=== PATIENT | female | born 1950 | race Caucasian/White ===

== ENCOUNTER 2024-08-27 12:57 | Outpatient (RCR) | payer MEDICARE, OTHER, SELFPAY | END 2024-08-27 23:59 | disposition home or self-care (01) | LOC: RPT 12:57 | PROVIDERS: ATTENDING PHYSICIAN Obstetrics & Gynecology; FAMILY PHYSICIAN Family Medicine | DX: R35.0 Frequency of micturition (principal); N39.41 Urge incontinence; N39.3 Stress incontinence (female) (male); N94.19 Other specified dyspareunia; N81.10 Cystocele, unspecified; Z73.6 Limitation of activities due to disability | CPT/HCPCS: 97163; 97530 ==

== ENCOUNTER 2024-09-29 13:59 | Outpatient (RCR) | payer MEDICARE, OTHER, SELFPAY | END 2024-09-29 23:59 | disposition home or self-care (01) | LOC: RPT 13:59 | PROVIDERS: ATTENDING PHYSICIAN Obstetrics & Gynecology; FAMILY PHYSICIAN Family Medicine | DX: R35.0 Frequency of micturition (principal); N39.41 Urge incontinence; N39.3 Stress incontinence (female) (male); N94.19 Other specified dyspareunia; N81.10 Cystocele, unspecified; Z73.6 Limitation of activities due to disability | CPT/HCPCS: 97014; 97140; 97530 ==

== ENCOUNTER → 2024-12-04 08:40 | Outpatient (REF) | payer MEDICARE, OTHER, SELFPAY | LOC: RAD 08:40 | PROVIDERS: ATTENDING PHYSICIAN Nurse Practitioner; FAMILY PHYSICIAN Family Medicine | DX: N39.0 Urinary tract infection, site not specified (principal) | CPT/HCPCS: 76770; 76856 ==

== ENCOUNTER 2025-01-28 12:47 | Outpatient (RCR) | payer MEDICARE, OTHER, SELFPAY | END 2025-01-28 23:59 | disposition home or self-care (01) | LOC: RPT 12:47 | PROVIDERS: ATTENDING PHYSICIAN Urology; FAMILY PHYSICIAN Family Medicine | DX: R35.0 Frequency of micturition (principal); M62.89 Other specified disorders of muscle; R10.2 Pelvic and perineal pain; K59.00 Constipation, unspecified; Z73.6 Limitation of activities due to disability | CPT/HCPCS: 97140; 97163; 97530 ==

== ENCOUNTER 2025-02-17 14:01 | Outpatient (RCR) | payer MEDICARE, OTHER, SELFPAY | END 2025-02-17 23:59 | disposition home or self-care (01) | LOC: RPT 14:01 | PROVIDERS: ATTENDING PHYSICIAN Urology; FAMILY PHYSICIAN Family Medicine | DX: R35.0 Frequency of micturition (principal); M62.89 Other specified disorders of muscle; R10.2 Pelvic and perineal pain; K59.00 Constipation, unspecified; Z73.6 Limitation of activities due to disability; N81.10 Cystocele, unspecified | CPT/HCPCS: 97140; 97530 ==

== ENCOUNTER 2025-04-01 14:17 | Outpatient (RCR) | payer MEDICARE, OTHER, SELFPAY | END 2025-04-01 23:59 | disposition home or self-care (01) | LOC: RPT 14:17 | PROVIDERS: ATTENDING PHYSICIAN Urology; FAMILY PHYSICIAN Family Medicine | DX: R35.0 Frequency of micturition (principal); M62.89 Other specified disorders of muscle; R10.2 Pelvic and perineal pain; K59.00 Constipation, unspecified; Z73.6 Limitation of activities due to disability; N81.10 Cystocele, unspecified | CPT/HCPCS: 97112; 97140; 97530 ==

== ENCOUNTER 2025-04-06 17:38 | Emergency (ER) | payer MEDICARE, OTHER, SELFPAY ==
[2025-04-06 17:41] VITALS: BP 176/90
[2025-04-06 18:05] LABS: Hematocrit 46.2 % (37.0-47.0); Hemoglobin 16.1 g/dL (12.0-16.0); Mean Corp Hgb Conc. 34.8 g/dL (33.0-37.0); Mean Corpuscular Volume 90.9 fL (81.0-99.0); Nucleated Red Blood Cells % 0 %; Platelet Count 272 10^3/uL (130-400); Red Cell Dist. Width 11.9 % (11.5-14.5); Urine Character Clear (Clear)
[2025-04-06 18:15] LABS: Urine Red Blood Cell 0-2 /HPF (0-2); Urine Squamous Cell 0-2 /LPF (Few); Urine White Cell 26-30 /HPF (0-5)
[2025-04-06 18:22] LABS: ALT (SGPT) 17 U/L (0-35); AST (SGOT) 19 U/L (14-36); Albumin 5.1 g/dl (3.5-5.0); Alkaline Phosphatase 46 U/L (38-126); Blood Urea Nitrogen 18 mg/dl (7-17); Calcium 9.6 mg/dl (8.4-10.2); Carbon Dioxide 29 mmol/L (22-30); Chloride 94 mmol/L (98-107); Glucose 100 mg/dl (70-99); Potassium 4.2 mmol/L (3.5-5.1); Sodium 130 mmol/L (135-145); Total Protein 7.7 g/dl (6.3-8.2); eGFR > 60.00
--- NOTE | 2025-04-06 19:55 | ED.GENMED ---
History of Present Illness
General
Chief Complaint: Urinary Symptoms
Source: patient, records and spouse
Time Seen by Provider: 04/06/25 19:04
History of Present Illness
History of Present Illness:
74-year-old female with a past medical history of fibromyalgia, chronic pain syndrome, pelvic organ prolapse with chronic pessary, atrophic vaginitis/GSM on chronic vaginal suppositories, chronic urinary retention requiring occasional straight
catheterization who presents to the emergency room for evaluation of urinary symptoms and abnormal urinalysis. Patient follows with urology at [place] (Dr. Alla Bower). She presents today for urinary symptoms and abnormal urinalysis as an
outpatient�she says that for the past few weeks she has began to develop bladder pressure, dysuria and increased frequency. She had abnormal urinalysis and was treated with fosfomycin which she finished 03/27 without improvement. She had repeat
urinalysis 04/01 which was positive for infection (I spoke with the urology group at [place] and patient apparently grew 100 K CFU E. coli resistant to ampicillin and Bactrim, intermediate sensitivity to Augmentin, otherwise sensitive). She says
that she was referred to the ER for assessment with concern that she may need IV antibiotics. She has had recurrent UTIs since September of this year that have apparently all grown E. coli and has been on multiple different antibiotics unfortunately
she has limited treatment options given that she is allergic to many antibiotics�she has listed allergies to penicillins, cephalosporins, fluoroquinolones, nitrofurantoin. She has not had any fevers or chills, flank pain or any other acute issues.
Review of Systems
Review of Systems
All Other Systems: ROS reviewed and negative except as documented in HPI and ROS
Constitutional: Denies fever
Respiratory: Denies trouble breathing
Cardiac: Denies chest pain
ABD/GI: Reports abdominal pain; Denies nausea or vomiting
: Reports dysuria and frequency; Denies flank pain
Musculoskeletal: Denies neck pain or back pain
Neurological: Denies headache
Phy Exam
Physical Exam
Physical Exam:
General: Awake, alert, oriented x3; no acute distress
Head: Normocephalic, atraumatic
Eyes: Conjunctiva normal
Throat: Airway intact, handling secretions
Neck: Trachea midline
Lungs: Breathing comfortably no distress
Heart: Regular rate
Abd: Soft, non distended, nontender
Back: No CVA tenderness
Skin: no rash
Extremities: Warm and well-perfused
Scores
Heart Failure Risk
Heart Failure Risk Score: Not Applicable
Heart Score for Chest Pain Patients
STEMI patient?: Not applicable
Withdrawal Assessment of Alcohol
Withdrawal Assessment Completed?: Not applicable
Course
Orders/Labs/Results
Orders:
Orders
04/06/25 17:57
Complete Blood Count/With Diff Urgent
Comprehensive Metabolic Panel Urgent
Urinalysis Reflex To Culture Urgent
Date Specimen was Collected: 04/06/25
Time Specimen was Collected: 17:48
Urine Microscopic Reflex Cult Urgent
Urine Culture Urgent
NELLY Source: U
Specimen Description:
Date Specimen was Collected: 04/06/25
Time Specimen was Collected: 17:48
Abnormal Lab Results
04/06/25
17:57
Hgb 16.1 H g/dL
(12.0-16.0)
MCH 31.7 H pg
(27.0-31.0)
Sodium 130 L mmol/L
(135-145)
Chloride 94 L mmol/L
(98-107)
BUN 18 H mg/dl
(7-17)
Creatinine 0.5 L mg/dL
(0.6-1.0)
Glucose 100 H mg/dl
(70-99)
Albumin 5.1 H g/dl
(3.5-5.0)
Leukocyte Esterase Rfl 1+ A
(Negative)
Urine WBC (Reflex) 26-30 A /HPF
(0-5)
Urine Bacteria (Reflex) Many A
(Negative)
04/06/25 17:57
04/06/25 17:57
Vital Signs
Initial and Last Documented VS:
Initial Vital Signs
Temp Pulse Resp BP Pulse Ox
37.1 C 81 17 176/90 99
04/06/25 17:41 04/06/25 17:41 04/06/25 17:41 04/06/25 17:41 04/06/25 17:41
Last Documented Vital Signs
Temp Pulse Resp BP Pulse Ox
37.1 C 81 17 176/90 99
04/06/25 17:41 04/06/25 17:41 04/06/25 17:41 04/06/25 17:41 04/06/25 19:55
MDM/Problems Addressed
Differential Diagnosis Includes:
UTI, interstitial cystitis, atrophic vaginitis
MDM/Problems Addressed:
74-year-old female presents to the ER with urinary symptoms and abnormal urinalysis as outpatient. Multiple allergies and recently failed Bactrim and fosfomycin. Vitals and exam as above. She had labs sent off today including a CBC which showed
no clinically significant abnormalities, urinalysis which showed only mild hyponatremia. Her urinalysis today is abnormal with positive bacteria and pyuria, no nitrites. Urine culture sent off. I spoke with urology at [place] to discuss�recent
culture 04/01 grew E. coli resistant to Bactrim and ampicillin with intermediate sensitivity to Augmentin otherwise sensitive. Discussed case with infectious disease regarding treatment options for this patient. Will plan to proceed with one-time
dose of IV gentamicin here. Can discharge on oral doxycycline. Can add Pyridium as well. No clear indication for hospitalization�patient feels comfortable with this plan. She is already well-established with urology and urogynecologist.
Chronic conditions affecting care:
GSM, interstitial cystitis
Acute Exacerbation and/or Progression of Chronic Illness:
Acutely hypertensive without signs or symptoms of hypertensive crisis�no negation for emergent antihypertensives
Acute Exacerbation and/or Progression of Chronic Illness: HTN
*Pulse Oximetry
SaO2: 99
Oxygen Mode of Delivery: Room air
Patient hypoxic: no (99%)
*Critical Care Note
Total Time (30-74mins, 75-104mins- exclusive of procedures): Not Applicable
Data Reviewed
Review of Other/Old Records Reveals: Records
Source: patient, records (Reviewed outpatient notes) and spouse
Patient Management
Discussion with other providers: PCP (Discussed with primary urology team) and Utilities And Maintenance Supervisor (Discussed with infectious disease)
ED Attending Note
-
Portions of this chart may have been created with voice recognition software.� Occasional wrong word or��sound alike� substitutions may have occurred due to the inherent limitations of voice recognition software.
Discharge Plan
Departure
Patient Disposition: Home (Routine Discharge)
Date of Disposition: 04/06/25
Time of Disposition: 20:25
Patient with high blood pressure during this ER visit?: Yes
Discharge Problem:
UTI (urinary tract infection)
Instructions: Urinary Tract Infection, Adult (DC)
Prescriptions:
New
doxycycline hyclate 100 mg tablet
100 mg PO BID Qty: 14 0RF
phenazopyridine [Pyridium] 100 mg tablet
100 mg PO TID Qty: 6 0RF
No Action
acetaminophen [Tylenol Arthritis] 650 MG tablet extended release
650 mg PO QID
omeprazole 2 MG/ML capsule,delayed release(DR/EC)
20 mg PO BID
polyethylene glycol 3350 255 GM powder
17 gm PO DAILY
ranitidine HCl 15 MG/ML syrup
150 mg PO HS PRN (Reason: GI reflux)
calcium-vitamin D3-vitamin K 1 EACH tablet,chewable
1 ea PO BID
Vivelle-Dot
0.05 mg transdermal 2XW
Referrals:
Alla Bower MD [Non-Admitting Privileges, Urology] - Call in 1-3 days for appt
Activity Restrictions/Additional Instructions:
Thank you for visiting the Emergency Department at [facility].
1. Please schedule a follow up appointment as directed. Call first thing tomorrow morning to make an appointment.
2. If indicated, please take your medications as instructed and indicated on discharge paperwork.
3. If any of your symptoms do not improve, or persist, or become more severe within 6-12 hours, please return to the emergency department for further care.
4. Please return to the emergency department if you develop a headache, neck pain/stiffness, fever greater than 100.4F, chest pain, shortness of breath, persistent nausea, vomiting, slurred speech, difficulty walking, numbness/tingling, weakness,
signs of infection or any other symptoms that are worrisome to you.
Please call [phone] if you have any questions.
Interventions
Interventions:
*Risk Screen - Suicide Last Done: 04/06/25 17:47
*General Assessment Last Done: 04/06/25 17:47
*Neglect/Abuse Screening Last Done: 04/06/25 17:47
*ED COVID-19 Vaccine History Last Done: 04/06/25 17:47
ED-Female Genitourinary Assessment Last Done: 04/06/25 20:00
Discharge Date and Time
Print Language: MAORI
[2025-04-06 20:13] VITALS: BP 143/74
[2025-04-06] MEDS: GENTAMICIN 55.875 MG IV (21:35)
[2025-04-06 22:11] VITALS: BP 146/70
== END 2025-04-06 22:15 | disposition home or self-care (01) ==
LOC: EMR 17:38
PROVIDERS: Emergency Medicine; EMERGENCY PHYSICIAN Emergency Medicine; FAMILY PHYSICIAN Urology
DX: N39.0 Urinary tract infection, site not specified (principal); M79.7 Fibromyalgia; E87.1 Hypo-osmolality and hyponatremia; I10 Essential (primary) hypertension; Z88.0 Allergy status to penicillin
CPT/HCPCS: 99283; 96365; 80053; 81003; 81015; 85025; 87077; 87086

== ENCOUNTER 2025-04-09 12:32 | Emergency (ER) | payer MEDICARE, OTHER, SELFPAY ==
[2025-04-09 12:39] VITALS: BP 152/122
[2025-04-09 13:04] LABS: Hematocrit 42.5 % (37.0-47.0); Hemoglobin 14.9 g/dL (12.0-16.0); Mean Corp Hgb Conc. 35.1 g/dL (33.0-37.0); Mean Corpuscular Volume 90.6 fL (81.0-99.0); Nucleated Red Blood Cells % 0 %; Platelet Count 182 10^3/uL (130-400); Red Cell Dist. Width 11.9 % (11.5-14.5)
[2025-04-09 13:07] LABS: Urine Character Clear (Clear)
[2025-04-09 13:18] LABS: ALT (SGPT) 20 U/L (0-35); AST (SGOT) 21 U/L (14-36); Albumin 4.3 g/dl (3.5-5.0); Alkaline Phosphatase 44 U/L (38-126); Blood Urea Nitrogen 10 mg/dl (7-17); Calcium 8.4 mg/dl (8.4-10.2); Carbon Dioxide 28 mmol/L (22-30); Chloride 93 mmol/L (98-107); Glucose 102 mg/dl (70-99); Potassium 3.9 mmol/L (3.5-5.1); Sodium 127 mmol/L (135-145); Total Protein 6.3 g/dl (6.3-8.2); eGFR > 60.00
[2025-04-09 13:30] LABS: Urine Red Blood Cell 0-2 /HPF (0-2); Urine Squamous Cell 16-20 /LPF (Few)
[2025-04-09 15:06] VITALS: BP 103/62
--- NOTE | 2025-04-09 15:31 | ED.GENMED ---
History of Present Illness
<Rashad Lim PA-C - Last Filed: 04/09/25 20:46>
General
Chief Complaint: Fainting Sensation
Time Seen by Provider: 04/09/25 15:05
History of Present Illness
History of Present Illness:
74-year-old female presents to the emergency department for evaluation after a syncopal event at her primary care physician's office today. She states that they were discussing antibiotic therapy for recurrent UTIs and when her doctor suggested
retrying ciprofloxacin, which she has had reactions to in the past, she became quite upset and fainted. She has had a history of anxiety driven near syncope in the past but according to the granddaughter has never fully syncopized. Currently she
is feeling well. She notes that after her visit here 3 days ago she had been prescribed doxycycline for a UTI however this caused severe stomach distress and thus she has not been eating or drinking as much. She stopped the Cipro 2 days ago. She
denies any associated fevers or chills. Does not take any diuretics
Review of Systems
<Rashad Lim PA-C - Last Filed: 04/09/25 20:46>
Review of Systems
Allergies reviewed?: Yes
All Other Systems: ROS reviewed and negative except as documented in HPI and ROS
Phy Exam
<BASIL Simpson Last Filed: 04/09/25 20:46>
Physical Exam
Physical Exam:
GEN: Well appearing, NAD, WDWN
HEENT: Oral mucosa moist, no scleral icterus
Cardiac: Regular rate and rhythm, no murmur
Lung: No respiratory distress, no tachypnea
MSK: No gross deformity or injuries
Skin: Good color, no pallor or jaundice, no rashes
Neuro: AO x3, moves all extremities freely
Psych: Calm, cooperative
Course
<Rashad Lim PA-C - Last Filed: 04/09/25 20:46>
Orders/Labs/Results
Orders:
Orders
04/09/25 12:42
Electrocardiogram (*1) Urgent
Reason for Study: Syncope
EKG- Treatment ONCE
04/09/25 12:53
Complete Blood Count/With Diff Urgent
Comprehensive Metabolic Panel Urgent
Urinalysis Reflex To Culture Urgent
Date Specimen was Collected: 04/09/25
Time Specimen was Collected: 12:42
Urine Microscopic Reflex Cult Urgent
04/09/25 15:55
0.9% Sodium Chloride 1000 ml [Nss] 1,000 ml IV BOLUS
Abnormal Lab Results
04/09/25
12:53
WBC 3.4 L 10^3/uL
(4.8-10.8)
MCH 31.8 H pg
(27.0-31.0)
Absolute Lymphs (auto) 0.7 L 10^3/uL
(1.2-3.4)
Immature Gran % 0.6 H %
(0-0.5)
Lymphocytes % 19.6 L %
(20.5-51.1)
Monocytes % 18.8 H %
(1.7-9.3)
Sodium 127 L mmol/L
(135-145)
Chloride 93 L mmol/L
(98-107)
Creatinine 0.5 L mg/dL
(0.6-1.0)
Glucose 102 H mg/dl
(70-99)
Urine Albumin (Reflex) 1+ A
(Neg - Trace)
04/09/25 12:53
04/09/25 12:53
Vital Signs
Initial and Last Documented VS:
Initial Vital Signs
Temp Pulse Resp BP Pulse Ox
36.7 C 68 16 152/122 98
04/09/25 12:39 04/09/25 12:39 04/09/25 12:39 04/09/25 12:39 04/09/25 12:39
Last Documented Vital Signs
Temp Pulse Resp BP Pulse Ox
36.7 C 69 16 111/74 98
04/09/25 12:39 04/09/25 17:01 04/09/25 17:01 04/09/25 17:01 04/09/25 17:01
<Saniya Camarillo PA-C - Last Filed: 04/10/25 08:34>
Orders/Labs/Results
Orders:
Orders
04/09/25 12:42
Electrocardiogram (*1) Urgent
Reason for Study: Syncope
EKG- Treatment ONCE
04/09/25 12:53
Complete Blood Count/With Diff Urgent
Comprehensive Metabolic Panel Urgent
Urinalysis Reflex To Culture Urgent
Date Specimen was Collected: 04/09/25
Time Specimen was Collected: 12:42
Urine Microscopic Reflex Cult Urgent
04/09/25 15:55
0.9% Sodium Chloride 1000 ml [Nss] 1,000 ml IV BOLUS
Abnormal Lab Results
04/09/25
12:53
WBC 3.4 L 10^3/uL
(4.8-10.8)
MCH 31.8 H pg
(27.0-31.0)
Absolute Lymphs (auto) 0.7 L 10^3/uL
(1.2-3.4)
Immature Gran % 0.6 H %
(0-0.5)
Lymphocytes % 19.6 L %
(20.5-51.1)
Monocytes % 18.8 H %
(1.7-9.3)
Sodium 127 L mmol/L
(135-145)
Chloride 93 L mmol/L
(98-107)
Creatinine 0.5 L mg/dL
(0.6-1.0)
Glucose 102 H mg/dl
(70-99)
Urine Albumin (Reflex) 1+ A
(Neg - Trace)
04/09/25 12:53
04/09/25 12:53
Vital Signs
Initial and Last Documented VS:
Initial Vital Signs
Temp Pulse Resp BP Pulse Ox
36.7 C 68 16 152/122 98
04/09/25 12:39 04/09/25 12:39 04/09/25 12:39 04/09/25 12:39 04/09/25 12:39
Last Documented Vital Signs
Temp Pulse Resp BP Pulse Ox
36.7 C 69 16 111/74 98
04/09/25 12:39 04/09/25 17:01 04/09/25 17:01 04/09/25 17:01 04/09/25 17:01
<Rashad Lim PA-C - Last Filed: 04/09/25 20:46>
MDM/Problems Addressed
MDM/Problems Addressed:
Patient's mild hyponatremia is increased compared to prior thus most likely on the basis of dehydration particularly given lack of p.o. intake after starting doxycycline recently. Her syncopal event was most likely vasovagal in the setting of
anxiety and stress. She is back to normal at this time. In regards to her recent UTI she did have a positive urine culture however urinalysis today shows no bacteria thus I have encouraged her to wait until her urogynecology follow-up early next
week to discuss whether further antibiotics are indicated particular given her numerous allergies
<Rashad Lim PA-C - Last Filed: 04/09/25 20:46>
Comment
Comment:
EKG independently interpreted by me shows normal sinus rhythm with normal QTc, normal no ST changes concerning for ischemia
*Pulse Oximetry
SaO2: 97
Oxygen Mode of Delivery: Room air
Patient hypoxic: no
*Critical Care Note
Total Time (30-74mins, 75-104mins- exclusive of procedures): Not Applicable
<Saniya Camarillo PA-C - Last Filed: 04/10/25 08:34>
Update Note
Update Note:
Urine culture from 8�5 is positive for E. coli but the patient returned on 8�8 was seen in the emergency department with a clean urinalysis and thus after I spoke with her regarding hold the antibiotics for now
ED Attending Note
<Rashad Lim PA-C - Last Filed: 04/09/25 20:46>
-
Portions of this chart may have been created with voice recognition software.� Occasional wrong word or��sound alike� substitutions may have occurred due to the inherent limitations of voice recognition software.
Discharge Plan
Departure
Patient Disposition: Home (Routine Discharge)
Date of Disposition: 04/09/25
Time of Disposition: 16:57
Patient with high blood pressure during this ER visit?: No
Discharge Problem:
Acute hyponatremia, Dehydration, Syncope
Instructions: Syncope (Fainting) (DC)
Prescriptions:
No Action
acetaminophen [Tylenol Arthritis] 650 MG tablet extended release
650 mg PO QID
omeprazole 2 MG/ML capsule,delayed release(DR/EC)
20 mg PO BID
polyethylene glycol 3350 255 GM powder
17 gm PO DAILY
ranitidine HCl 15 MG/ML syrup
150 mg PO HS PRN (Reason: GI reflux)
calcium-vitamin D3-vitamin K 1 EACH tablet,chewable
1 ea PO BID
Vivelle-Dot
0.05 mg transdermal 2XW
doxycycline hyclate 100 mg tablet
100 mg PO BID Qty: 14 0RF
phenazopyridine [Pyridium] 100 mg tablet
100 mg PO TID Qty: 6 0RF
Referrals:
Lucas Kramer, DO [Family Provider]
Activity Restrictions/Additional Instructions:
Do not take the antibiotics at this time, follow-up with your urogynecologist as discussed. Have your sodium levels rechecked by your primary doctor at some point early next week
Interventions
Interventions:
*Risk Screen - Suicide Last Done: 04/09/25 12:39
*General Assessment Last Done: 04/09/25 14:31
*Neglect/Abuse Screening Last Done: 04/09/25 12:39
*ED- Fall Risk Assessment Last Done: 04/09/25 14:31
*ED COVID-19 Vaccine History Last Done: 04/09/25 14:31
*Nursing Disposition Last Done: 04/09/25 17:02
ED- Cardiac Assessment Last Done: 04/09/25 14:31
ED- Neurological Assessment Last Done: 04/09/25 14:31
Discharge Date and Time
Discharge Date/Time: 04/09/25 17:09
Print Language: HUNGARIAN
[2025-04-09 16:00] VITALS: BP 105/61
[2025-04-09] MEDS: NSS 1000 IV (16:12)
[2025-04-09 17:01] VITALS: BP 111/74
== END 2025-04-09 17:09 | disposition home or self-care (01) ==
LOC: EMR 12:32
PROVIDERS: Emergency Medicine; EMERGENCY PHYSICIAN Student in an Organized Health Care Education/Training Program; FAMILY PHYSICIAN Family Medicine
DX: E87.1 Hypo-osmolality and hyponatremia (principal); E86.0 Dehydration; R55 Syncope and collapse; Z87.440 Personal history of urinary (tract) infections
CPT/HCPCS: 99284; 96360; 80053; 81003; 81015; 85025; 93005

== ENCOUNTER 2025-04-29 14:54 | Outpatient (RCR) | payer MEDICARE, OTHER, SELFPAY | END 2025-04-29 23:59 | disposition home or self-care (01) | LOC: RPT 14:54 | PROVIDERS: ATTENDING PHYSICIAN Urology; FAMILY PHYSICIAN Family Medicine | DX: R35.0 Frequency of micturition (principal); M62.89 Other specified disorders of muscle; R10.2 Pelvic and perineal pain; K59.00 Constipation, unspecified; Z73.6 Limitation of activities due to disability; N81.10 Cystocele, unspecified | CPT/HCPCS: 97140; 97530 ==

== ENCOUNTER 2025-06-26 12:23 | Emergency (ER) | payer MEDICARE, OTHER, SELFPAY ==
[2025-06-26] VITALS (7 sets, daily range): BP systolic 126–157; BP diastolic 64–85; BMI 19.7
--- NOTE | 2025-06-26 14:06 | ED.GENMED ---
History of Present Illness
General
Chief Complaint: Abdominal Symptoms
Source: patient
Exam Limitations: none
Time Seen by Provider: 06/26/25 13:26
Nursing documentation reviewed up to this point in time: agreed with
History of Present Illness
History of Present Illness:
74-year-old female presenting to the emergency department today with concerns of progressive abdominal pain mainly to the lower abdomen over the past month but specifically over the past week. Does have chronic abdominal pain irritable bowel
syndrome and chronic pain syndromes including fibromyalgia. She is also concerned she may have a UTI as she does have these very frequently.
Review of Systems
Review of Systems
Allergies reviewed?: Yes
All Other Systems: ROS reviewed and negative except as documented in HPI and ROS
Phy Exam
Physical Exam
Physical Exam:
GENERAL: Alert , in no apparent distress
EYE: pupils equal and reactive
NECK: Supple, no significant adenopathy.
ENT: o/p clr, mmm.
CARDIAC: Regular rate and rhythm .
LUNGS: Clear breath sounds bilaterally, no acute respiratory distress, no wheezes/rales/rhonchi
ABDOMEN: Vague diffuse pain no focal pain no rigidity no peritoneal signs no guarding
NEUROLOGICAL: Alert and oriented, no focal neuro deficits
SKIN: Warm and dry, skin intact.
MUSCULOSKELETAL: No edema, well perfused.
PSYCH: Normal and appropriate interaction.
Course
Orders/Labs/Results
Orders:
Orders
06/26/25 13:59
Complete Blood Count/With Diff Urgent
Urinalysis Reflex To Culture Urgent
Date Specimen was Collected: 06/26/25
Time Specimen was Collected: 13:29
06/26/25 14:00
CT Abd/Pel (IV only)-DH only Urgent
Comment:
Reason For Exam: lower abd pain
Morphine Sulfate 4 mg IV NOW STA
06/26/25 15:33
Comprehensive Metabolic Panel Urgent
Lipase Urgent
Magnesium Urgent
Abnormal Lab Results
06/26/25 06/26/25
13:59 15:33
MCH 32.1 H pg
(27.0-31.0)
Abs Immat Gran (auto) 0.1 H 10^3/uL
(0-0.05)
Immature Gran % 1.2 H %
(0-0.5)
Sodium 133 L mmol/L
(135-145)
Creatinine 0.5 L mg/dL
(0.6-1.0)
Alkaline Phosphatase 36 L U/L
(38-126)
Total Protein 5.8 L g/dl
(6.3-8.2)
06/26/25 13:59
06/26/25 15:33
Vital Signs
Initial and Last Documented VS:
Initial Vital Signs
Temp Pulse Resp BP Pulse Ox
98.1 F 84 16 157/81 98
06/26/25 12:27 06/26/25 12:27 06/26/25 12:27 06/26/25 12:27 06/26/25 12:27
Last Documented Vital Signs
Temp Pulse Resp BP Pulse Ox
98.6 F 76 20 131/85 99
06/26/25 14:29 06/26/25 18:54 06/26/25 18:54 06/26/25 18:54 06/26/25 18:54
MDM/Problems Addressed
MDM/Problems Addressed:
74-year-old female presenting to the emergency department today with concerns of vague abdominal mainly to the lower abdomen worsening over the past week has been present to some degree over the past month or so. Does have chronic pain is unsure if
this is from her chronic pain syndromes. Here assessment without emergent findings labs unremarkable CT scan without emergent findings incidental finding of thickening of the stomach was told to the patient. Otherwise stable for discharge return
precautions given.
*Pulse Oximetry
SaO2: 100
Oxygen Mode of Delivery: Room air
Patient hypoxic: no (99)
*Critical Care Note
Total Time (30-74mins, 75-104mins- exclusive of procedures): Not Applicable
ED Attending Note
-
Portions of this chart may have been created with voice recognition software.� Occasional wrong word or��sound alike� substitutions may have occurred due to the inherent limitations of voice recognition software.
Discharge Plan
Departure
Patient Disposition: Home (Routine Discharge)
Date of Disposition: 06/26/25
Time of Disposition: 19:40
Patient with high blood pressure during this ER visit?: No
Condition: Good
Covid-19: Not Applicable
Discharge Problem:
Abdominal pain
Instructions: Abdominal Pain
Prescriptions:
New
tizanidine 2 mg tablet
2 mg PO Q8H PRN (Reason: muscle spasticity) Qty: 7 0RF
No Action
acetaminophen [Tylenol Arthritis] 650 MG tablet extended release
650 mg PO QID
omeprazole 2 MG/ML capsule,delayed release(DR/EC)
20 mg PO BID
polyethylene glycol 3350 255 GM powder
17 gm PO DAILY
calcium-vitamin D3-vitamin K 1 EACH tablet,chewable
1 ea PO BID
Vivelle-Dot
0.05 mg transdermal 2XW
phenazopyridine [Pyridium] 100 mg tablet
100 mg PO TID Qty: 6 0RF
lidocaine 5 % Ointment
1 applic TOPICAL BID
pregabalin [Lyrica] 20 mg/mL Solution
50 mg PO TID
diphenhydramine HCl [Benadryl] 50 mg Capsule
50 mg PO HS PRN (Reason: insomina)
famotidine [Pepcid AC] 10 mg Tablet
10 mg PO HS
fexofenadine [Elly] 60 mg Tablet
60 mg PO BID
sucralfate [Carafate] 1 gram Tablet
1 g PO TID
zolpidem [Ambien] 5 mg Tablet
2.5 mg PO HS
polyethylene glycol 3350 [GlycoLax] 17 gram/dose Powder
4 g PO BID
tobramycin-dexamethasone [TobraDex] 0.3-0.1 % Drops,Suspension
1 drp OPHTHALMIC (EYE) 6XD
oxycodone 5 mg Tablet
2.5 mg PO Q4H PRN (Reason: pain)
cetirizine [Zyrtec] 1 mg/mL Solution
2.5 mg PO DAILY
lubiprostone [Amitiza] 8 mcg Capsule
8 mcg PO BID
Referrals:
Lucas Kramer DO [Family Provider]
Activity Restrictions/Additional Instructions:
You came to the emergency department today with concerns of abdominal pain. Here due to reassuring assessment. Please follow closely with your pain management doctor. Return for any worsening, new or concerning symptom
Interventions
Interventions:
*Risk Screen - Suicide Last Done: 06/26/25 14:29
*General Assessment Last Done: 06/26/25 12:27
*Neglect/Abuse Screening Last Done: 06/26/25 14:29
*ED- Fall Risk Assessment Last Done: 06/26/25 14:29
*ED COVID-19 Vaccine History Last Done: 06/26/25 14:29
*ED Influenza Vaccine History Last Done: 06/26/25 14:29
OM-Hbzvzj-Gmhfywbbui Assessment Last Done: 06/26/25 14:29
Discharge Date and Time
Print Language: [place] CITIZEN
[2025-06-26] MEDS: MORPHINE SULFATE 4 MG IV (14:08)
[2025-06-26 14:25] LABS: Urine Character Clear (Clear)
[2025-06-26 14:31] LABS: Hematocrit 41.9 % (37.0-47.0); Hemoglobin 14.5 g/dL (12.0-16.0); Mean Corp Hgb Conc. 34.6 g/dL (33.0-37.0); Mean Corpuscular Volume 92.7 fL (81.0-99.0); Nucleated Red Blood Cells % 0 %; Platelet Count 250 10^3/uL (130-400); Red Cell Dist. Width 11.9 % (11.5-14.5)
[2025-06-26 16:04] LABS: ALT (SGPT) 14 U/L (0-35); AST (SGOT) 19 U/L (14-36); Albumin 3.8 g/dl (3.5-5.0); Alkaline Phosphatase 36 U/L (38-126); Blood Urea Nitrogen 13 mg/dl (7-17); Calcium 8.5 mg/dl (8.4-10.2); Carbon Dioxide 29 mmol/L (22-30); Chloride 103 mmol/L (98-107); Estimated Creatinine Clearance 60 ml/min; Glucose 89 mg/dl (70-99); Lipase 72 U/L (23-300); Magnesium 2.1 mg/dl (1.6-2.3); Potassium 4.2 mmol/L (3.5-5.1); Sodium 133 mmol/L (135-145); Total Protein 5.8 g/dl (6.3-8.2); eGFR > 60.00
== END 2025-06-26 19:46 | disposition home or self-care (01) ==
LOC: EMR 12:23
PROVIDERS: EMERGENCY PHYSICIAN Emergency Medicine; FAMILY PHYSICIAN Family Medicine
DX: R10.30 Lower abdominal pain, unspecified (principal); K58.9 Irritable bowel syndrome, unspecified; G89.4 Chronic pain syndrome; M79.7 Fibromyalgia
CPT/HCPCS: 99284; 96374; 74177; 80053; 81003; 83690; 83735; 85025; Q9967

== ENCOUNTER 2025-08-12 12:27 | Outpatient (RCR) | payer MEDICARE, OTHER, SELFPAY | END 2025-08-12 23:59 | disposition home or self-care (01) | LOC: RPT 12:27 | PROVIDERS: ATTENDING PHYSICIAN Urology; FAMILY PHYSICIAN Family Medicine | DX: R35.0 Frequency of micturition (principal); M62.89 Other specified disorders of muscle; R10.2 Pelvic and perineal pain; R10.20 Pelvic and perineal pain unspecified side; K59.00 Constipation, unspecified; Z73.6 Limitation of activities due to disability; N81.10 Cystocele, unspecified | CPT/HCPCS: 97140; 97530 ==